=== PATIENT | female | born 1960 | race Caucasian/White ===

== ENCOUNTER 2017-12-26 16:17 | Inpatient (IN) | payer MEDICARE, OTHER ==
[2017-12-26 17:17] LABS: Basophils % (A) 0 %; Eosinophils # (A) 0.1 k/uL (0-0.7); Eosinophils % (A) 1 %; HCT 44.2 % (34.0-46.0); HGB 14.6 gm/dL (11.4-16.0); Lymphocytes # (A) 1.2 k/uL (1.0-4.8); Lymphocytes % (A) 7 %; MCH 29.8 pg (25.0-35.0); MCHC 33.1 g/dL (31.0-37.0); Mean Platelet Volume 7.8; Monocytes # (A) 0.6 k/uL (0-1.0); Monocytes % (A) 4 %; Neutrophils # (A) 13.8 k/uL (1.3-7.7); Neutrophils % (A) 87 %; Platelet Count 236 k/uL (150-450); RBC 4.91 m/uL (3.80-5.40); RDW 12.4 % (11.5-15.5); WBC 15.9 k/uL (3.8-10.6)
[2017-12-26 17:20] LABS: Appearance,Urine Clear (Clear); Bilirubin,Urine Negative (Negative); Blood,Urine Small (Negative); Color,Urine Yellow; Glucose,Urine (UA) Negative (Negative); Ketones,Urine Trace (Negative); Leukocyte Esterase,Urine Negative (Negative); Mucus,Urine Few /hpf; Nitrite,Urine Negative (Negative); PH, Urine 5.5 (5.0-8.0); Protein,Urine Trace (Negative); RBC,Urine <1 /hpf (0-5); Specific Gravity,Urine 1.021 (1.001-1.035); Squamous Epithelial Cell,Urine 1 /hpf (0-4); Urobilinogen,Urine <2.0 mg/dL (<2.0); WBC,Urine 3 /hpf (0-5)
[2017-12-26 17:34] LABS: ALT 39 U/L (9-52); AST 22 U/L (14-36); Albumin 4.6 g/dL (3.5-5.0); Alkaline Phosphatase 95 U/L (38-126); Amylase 48 U/L (30-110); Anion Gap 11 mmol/L; Blood Urea Nitrogen 14 mg/dL (7-17); Calcium 9.9 mg/dL (8.4-10.2); Carbon Dioxide 26 mmol/L (22-30); Chloride 102 mmol/L (98-107); Glucose 104 mg/dL (74-99); Lipase 35 U/L (23-300); Potassium 4.6 mmol/L (3.5-5.1); Sodium 139 mmol/L (137-145); Total Bilirubin 0.7 mg/dL (0.2-1.3); Total Protein 7.6 g/dL (6.3-8.2)
[2017-12-26] MEDS ORDERED: ONDANSETRON 4 MG/2 ML VIAL IVP STA (17:43)
[2017-12-26] MEDS ORDERED: MORPHINE SULFATE 4 MG/ML SYRINGE IV STA (17:43)
[2017-12-26] MEDS ORDERED: SODIUM CHLORIDE 0.9% 1,000 ML IV STA (17:43)
[2017-12-26] MEDS ORDERED: MORPHINE SULFATE 4 MG/ML SYRINGE IVP STA (17:59)
[2017-12-26] MEDS: SODIUM CHLORIDE 0.9% 1,000 ML IV STA ×2 (18:12→23:34)
--- NOTE | 2017-12-26 19:03 | ED ---
General Adult HPI - General Chief complaint: Abdominal Pain Stated complaint: Abd Pain Time Seen by Provider: 12/26/17 17:41 Source: patient, RN notes reviewed, old records reviewed Mode of arrival: ambulatory Limitations: no limitations - History of Present Illness Initial comments: This is a 37-year-old female to the ER for evaluation of severe bowel pain severe epigastric to right lower quadrant abdominal pain and suprapubic abdominal pain. 's medical history he is gynecological surgery including history x-ray. She otherwise takes no medications no fevers. No travel history no sick contacts. No other abdominal surgeries noted. No colonoscopy. No nausea vomiting or diarrhea currently. Patient has pain 2 days worsening and severe today - Related Data Home Medications Medication Instructions Recorded Confirmed Amitriptyline HCl [Elavil] 25 mg PO HS 12/26/17 12/26/17 Ibuprofen [Motrin] 800 mg PO BID PRN 12/26/17 12/26/17 Allergies Allergy/AdvReac Type Severity Reaction Status Date / Time latex Allergy Unknown Verified 12/26/17 17:28 Review of Systems ROS Statement: Those systems with pertinent positive or pertinent negative responses have been documented in the HPI. ROS Other: All systems not noted in ROS Statement are negative. Past Medical History Past Medical History: No Reported History History of Any Multi-Drug Resistant Organisms: None Reported Past Surgical History: Section, Hysterectomy Past Psychological History: No Psychological Hx Reported Smoking Status: Current every day smoker Past Alcohol Use History: None Reported Past Drug Use History: None Reported General Exam Limitations: no limitations General appearance: alert, in no apparent distress Head exam: Present: atraumatic, normocephalic, normal inspection Eye exam: Present: normal appearance, PERRL, EOMI. Absent: scleral icterus, conjunctival injection, periorbital swelling ENT exam: Present: normal exam, mucous membranes moist Neck exam: Present: normal inspection. Absent: tenderness, meningismus, lymphadenopathy Respiratory exam: Present: normal lung sounds bilaterally. Absent: respiratory distress, wheezes, rales, rhonchi, stridor Cardiovascular Exam: Present: regular rate, normal rhythm, normal heart sounds. Absent: systolic murmur, diastolic murmur, rubs, gallop, clicks GI/Abdominal exam: Present: soft, tenderness (Positive right lower quadrant tenderness), normal bowel sounds. Absent: distended, guarding, rebound, rigid Extremities exam: Present: normal inspection, full ROM, normal capillary refill. Absent: tenderness, pedal edema, joint swelling, calf tenderness Back exam: Present: normal inspection Neurological exam: Present: alert, oriented X3, CN II-XII intact Psychiatric exam: Present: normal affect, normal mood Skin exam: Present: warm, dry, intact, normal color. Absent: rash Course Vital Signs 12/26/17 16:22 Temperature 98.4 F Pulse Rate 98 Respiratory 18 Rate Blood Pressure 105/75 O2 Sat by Pulse 100 Oximetry - Reevaluation(s) Reevaluation #1: 12/26/17 19:03 Patient does have current pain control Reevaluation #2: 12/26/17 19:[address] Prieto will admit patient for surgical evaluation Medical Decision Making - Medical Decision Making 57 female the ER positive appendicitis. Patient be admitted for IV antibiotics , pain control, IV resuscitation and surgical consultation - Lab Data Result diagrams: 12/26/17 17:03 12/26/17 17:03 Lab Results 12/26/17 12/26/17 12/26/17 Range/Units 17:03 17:03 17:03 WBC 15.9 H (3.8-10.6) k/uL RBC 4.91 (3.80-5.40) m/uL Hgb 14.6 (11.4-16.0) gm/dL Hct 44.2 (34.0-46.0) % MCV 90.0 (80.0-100.0) fL MCH 29.8 (25.0-35.0) pg MCHC 33.1 (31.0-37.0) g/dL RDW 12.4 (11.5-15.5) % Plt Count 236 (150-450) k/uL Neutrophils % 87 % Lymphocytes % 7 % Monocytes % 4 % Eosinophils % 1 % Basophils % 0 % Neutrophils # 13.8 H (1.3-7.7) k/uL Lymphocytes # 1.2 (1.0-4.8) k/uL Monocytes # 0.6 (0-1.0) k/uL Eosinophils # 0.1 (0-0.7) k/uL Basophils # 0.0 (0-0.2) k/uL Sodium 139 (137-145) mmol/L Potassium 4.6 (3.5-5.1) mmol/L Chloride 102 (98-107) mmol/L Carbon Dioxide 26 (22-30) mmol/L Anion Gap 11 mmol/L BUN 14 (7-17) mg/dL Creatinine 0.82 (0.52-1.04) mg/dL Est GFR (CKD-EPI)AfAm >90 (>60 ml/min/1.73 sqM) Est GFR (CKD-EPI)NonAf 80 (>60 ml/min/1.73 sqM) Glucose 104 H (74-99) mg/dL Plasma Lactic Acid Juan Jose (0.7-2.0) mmol/L Calcium 9.9 (8.4-10.2) mg/dL Total Bilirubin 0.7 (0.2-1.3) mg/dL AST 22 (14-36) U/L ALT 39 (9-52) U/L Alkaline Phosphatase 95 (38-126) U/L Total Protein 7.6 (6.3-8.2) g/dL Albumin 4.6 (3.5-5.0) g/dL Amylase 48 (30-110) U/L Lipase 35 (23-300) U/L Urine Color Yellow Urine Appearance Clear (Clear) Urine pH 5.5 (5.0-8.0) Ur Specific Hoffman 1.021 (1.001-1.035) Urine Protein Trace H (Negative) Urine Glucose (UA) Negative (Negative) Urine Ketones Trace H (Negative) Urine Blood Small H (Negative) Urine Nitrite Negative (Negative) Urine Bilirubin Negative (Negative) Urine Urobilinogen <2.0 (<2.0) mg/dL Ur Leukocyte Esterase Negative (Negative) Urine RBC <1 (0-5) /hpf Urine WBC 3 (0-5) /hpf Ur Squamous Epith Cells 1 (0-4) /hpf Urine Mucus Few H (None) /hpf 12/26/17 Range/Units 18:11 WBC (3.8-10.6) k/uL RBC (3.80-5.40) m/uL Hgb (11.4-16.0) gm/dL Hct (34.0-46.0) % MCV (80.0-100.0) fL MCH (25.0-35.0) pg MCHC (31.0-37.0) g/dL RDW (11.5-15.5) % Plt Count (150-450) k/uL Neutrophils % % Lymphocytes % % Monocytes % % Eosinophils % % Basophils % % Neutrophils # (1.3-7.7) k/uL Lymphocytes # (1.0-4.8) k/uL Monocytes # (0-1.0) k/uL Eosinophils # (0-0.7) k/uL Basophils # (0-0.2) k/uL Sodium (137-145) mmol/L Potassium (3.5-5.1) mmol/L Chloride (98-107) mmol/L Carbon Dioxide (22-30) mmol/L Anion Gap mmol/L BUN (7-17) mg/dL Creatinine (0.52-1.04) mg/dL Est GFR (CKD-EPI)AfAm (>60 ml/min/1.73 sqM) Est GFR (CKD-EPI)NonAf (>60 ml/min/1.73 sqM) Glucose (74-99) mg/dL Plasma Lactic Acid Juan Jose 0.9 (0.7-2.0) mmol/L Calcium (8.4-10.2) mg/dL Total Bilirubin (0.2-1.3) mg/dL AST (14-36) U/L ALT (9-52) U/L Alkaline Phosphatase (38-126) U/L Total Protein (6.3-8.2) g/dL Albumin (3.5-5.0) g/dL Amylase (30-110) U/L Lipase (23-300) U/L Urine Color Urine Appearance (Clear) Urine pH (5.0-8.0) Ur Specific Hoffman (1.001-1.035) Urine Protein (Negative) Urine Glucose (UA) (Negative) Urine Ketones (Negative) Urine Blood (Negative) Urine Nitrite (Negative) Urine Bilirubin (Negative) Urine Urobilinogen (<2.0) mg/dL Ur Leukocyte Esterase (Negative) Urine RBC (0-5) /hpf Urine WBC (0-5) /hpf Ur Squamous Epith Cells (0-4) /hpf Urine Mucus (None) /hpf - Radiology Data Radiology results: report reviewed (CT abdomen and pelvis is positive for appendicitis), image reviewed Disposition Clinical Impression: Abdominal pain, Acute appendicitis Disposition: ADMITTED IP TO THIS HOSP Condition: Fair Is patient prescribed a controlled substance at d/c from ED?: No Referrals: Zhou Su DO [Primary Care Provider] - 1-2 days
[2017-12-26] MEDS ORDERED: AMPICILLIN-SULBACTAM 3 GM in SODIUM CHLORIDE 0.9% 100 ML IVPB STA (19:59)
--- NOTE | 2017-12-26 20:02 | CT ---
EXAMINATION TYPE: CT abdomen pelvis w con DATE OF EXAM: 12/26/2017 COMPARISON: None HISTORY: Lower abdominal pain and nausea x2 days. CT DLP: 874 mGycm Automated exposure control for dose reduction was used. TECHNIQUE: Helical acquisition of images was performed from the lung bases through the pelvis. CONTRAST: Performed without Oral Contrast and with IV Contrast, patient injected with 100ml mL of Iso richie M300. FINDINGS: LUNG BASES: No significant abnormality is appreciated. LIVER/GB: No significant abnormality is appreciated. PANCREAS: No significant abnormality is seen. SPLEEN: No significant abnormality is seen. ADRENALS: No significant abnormality is seen. KIDNEYS: No significant abnormality is seen. FREE AIR: No free air is visualized. RETROPERITONEAL ADENOPATHY: None visualized REPRODUCTIVE ORGANS: No significant abnormality is seen URINARY BLADDER: No significant abnormality is seen. PELVIC ADENOPATHY: None visualized. OSSEOUS STRUCTURES: No significant abnormality is seen. BOWEL: Throughout the abdomen there are unopacified loops of bowel, and this is particularly prominen t in the right lower quadrant. In the right lower quadrant there is a distended loop of bowel, up to 15 mm caliber. At the junction of this loop with the cecum there is high density suggesting appendico lith. There is moderate surrounding edematous reticulation of the fat planes and thickening/indistinc tness of the right lateral pelvic fascia and minimal thickening and indistinctness of the lower most right lateral conal fascia. The CT findings are consistent with appendicitis. The appendix courses fr om the right lower quadrant posteriorly to the midline to abut the soft tissues just anterior to the sacral promontory. There are no abnormal gas or fluid collections. No bowel obstruction. OTHER: Vasculature unremarkable. IMPRESSION: READINGS CONSISTENT WITH ACUTE APPENDICITIS, WITH PROMINENT DISTENTION OF THE APPENDIX. Results discu ssed with the ordering physician.
[2017-12-26 21:40] VITALS: BMI 25.7
[2017-12-26] MEDS: MORPHINE SULFATE 4 MG/ML SYRINGE IVP PRN (23:33)
[2017-12-26] MEDS: ONDANSETRON 4 MG/2 ML VIAL IVP PRN (23:33)
[2017-12-27] MEDS: AMPICILLIN-SULBACTAM 3 GM in SODIUM CHLORIDE 0.9% 100 ML IVPB SCH ×4 (00:50→18:06)
[2017-12-27] MEDS: MORPHINE SULFATE 4 MG/ML SYRINGE IVP PRN ×2 (03:47→08:23)
[2017-12-27] MEDS: ONDANSETRON 4 MG/2 ML VIAL IVP PRN (08:28)
[2017-12-27] MEDS ORDERED: IV FLUID CONTINUATION 400 ML IV ONE (08:40)
--- NOTE | 2017-12-27 08:49 | P.GSHP ---
History of Present Illness H&P Date: 12/27/17 Chief Complaint: Acute appendicitis 's is a 57-year-old female who's had right lower quadrant abdominal pain for 36 hours. She presents emergency. Her CAT scan shows evidence of appendicitis. Past Medical History Past Medical History: No Reported History, Skin Disorder Additional Past Medical History / Comment(s): psoriasis History of Any Multi-Drug Resistant Organisms: None Reported Past Surgical History: Section, Hysterectomy Past Anesthesia/Blood Transfusion Reactions: No Reported Reaction Past Psychological History: No Psychological Hx Reported Smoking Status: Current every day smoker Past Alcohol Use History: None Reported Past Drug Use History: None Reported - Past Family History Mother Family Medical History: Hyperlipidemia Father History Unknown: Yes Family Medical History: Cancer, Hypertension Additional Family Medical History / Comment(s): bladder cancer Medications and Allergies Home Medications Medication Instructions Recorded Confirmed Type Amitriptyline HCl [Elavil] 25 mg PO HS 12/26/17 12/26/17 History Ibuprofen [Motrin] 800 mg PO BID PRN 12/26/17 12/26/17 History Allergies Allergy/AdvReac Type Severity Reaction Status Date / Time latex Allergy Unknown Verified 12/26/17 17:28 Surgical - Exam Vital Signs Temp Pulse Resp BP Pulse Ox 98.4 F 98 18 105/75 100 12/26/17 16:22 12/26/17 16:22 12/26/17 16:22 12/26/17 16:22 12/26/17 16:22 - General well developed, no distress - Eyes PERRL - ENT normal pinna - Neck no masses - Respiratory normal expansion - Cardiovascular Rhythm: regular - Abdomen Right lower quadrant pain. There is tenderness on deep palpation. Abdomen: soft Results - Labs 12/26/17 17:03 12/26/17 17:03 Abnormal Lab Results - Last 24 Hours (Table) 12/26/17 12/26/17 12/26/17 Range/Units 17:03 17:03 17:03 WBC 15.9 H (3.8-10.6) k/uL Neutrophils # 13.8 H (1.3-7.7) k/uL Glucose 104 H (74-99) mg/dL Urine Protein Trace H (Negative) Urine Ketones Trace H (Negative) Urine Blood Small H (Negative) Urine Mucus Few H (None) /hpf Diabetes panel 12/26/17 Range/Units 17:03 Sodium 139 (137-145) mmol/L Potassium 4.6 (3.5-5.1) mmol/L Chloride 102 (98-107) mmol/L Carbon Dioxide 26 (22-30) mmol/L BUN 14 (7-17) mg/dL Creatinine 0.82 (0.52-1.04) mg/dL Glucose 104 H (74-99) mg/dL Calcium 9.9 (8.4-10.2) mg/dL AST 22 (14-36) U/L ALT 39 (9-52) U/L Alkaline Phosphatase 95 (38-126) U/L Total Protein 7.6 (6.3-8.2) g/dL Albumin 4.6 (3.5-5.0) g/dL Calcium panel 12/26/17 Range/Units 17:03 Calcium 9.9 (8.4-10.2) mg/dL Albumin 4.6 (3.5-5.0) g/dL Pituitary panel 12/26/17 Range/Units 17:03 Sodium 139 (137-145) mmol/L Potassium 4.6 (3.5-5.1) mmol/L Chloride 102 (98-107) mmol/L Carbon Dioxide 26 (22-30) mmol/L BUN 14 (7-17) mg/dL Creatinine 0.82 (0.52-1.04) mg/dL Glucose 104 H (74-99) mg/dL Calcium 9.9 (8.4-10.2) mg/dL Adrenal panel 12/26/17 Range/Units 17:03 Sodium 139 (137-145) mmol/L Potassium 4.6 (3.5-5.1) mmol/L Chloride 102 (98-107) mmol/L Carbon Dioxide 26 (22-30) mmol/L BUN 14 (7-17) mg/dL Creatinine 0.82 (0.52-1.04) mg/dL Glucose 104 H (74-99) mg/dL Calcium 9.9 (8.4-10.2) mg/dL Total Bilirubin 0.7 (0.2-1.3) mg/dL AST 22 (14-36) U/L ALT 39 (9-52) U/L Alkaline Phosphatase 95 (38-126) U/L Total Protein 7.6 (6.3-8.2) g/dL Albumin 4.6 (3.5-5.0) g/dL Assessment and Plan Assessment: Acute appendicitis. Patient will undergo laparoscopic appendectomy.
[2017-12-27] MEDS ORDERED: HEPARIN SODIUM,PORCINE 5,000 UNIT/ML 1 ML VIAL SQ ONE (09:03)
[2017-12-27] MEDS ORDERED: DEXAMETHASONE SOD PHOSPHATE 10 MG/ML 1 ML VIAL IV ONE (09:03)
[2017-12-27] MEDS ORDERED: fentaNYL (PF) 50 MCG/ML 2 ML AMP ONE (09:09)
[2017-12-27] MEDS ORDERED: SUCCINYLCHOLINE CHLORIDE 100 MG/5 ML SYR IV ONE (09:09)
[2017-12-27] MEDS ORDERED: LIDOCAINE 1% INJ 10MG/ML (20 ML MDV) ONE (09:09)
[2017-12-27] MEDS ORDERED: GLYCOPYRROLATE 0.2 MG/ML 2 ML VIAL ONE (09:09)
[2017-12-27] MEDS ORDERED: NEOSTIGMINE 1 MG/ML 10 ML VIAL ONE (09:09)
[2017-12-27] MEDS ORDERED: ROCURONIUM BROMIDE 10 MG/ML 10 ML VIAL IV ONE (09:09)
[2017-12-27] MEDS ORDERED: MIDAZOLAM 2 MG/2 ML VIAL ONE (09:09)
[2017-12-27] MEDS ORDERED: PROPOFOL 10 MG/ML 20 ML VIAL IV ONE (09:09)
[2017-12-27] MEDS: PANTOPRAZOLE 40 MG/10 ML VIAL IVP SCH (09:25)
[2017-12-27] MEDS ORDERED: BUPIVACAIN-EPI 0.5%-1:200,000 30 ML VIAL SQ ONE (09:29)
[2017-12-27] MEDS ORDERED: LACTATED RINGERS 1,000 ML IV ONE (09:43)
--- NOTE | 2017-12-27 09:48 | P.OP ---
Date of Procedure: 12/27/17 Preoperative Diagnosis: Acute appendicitis Postoperative Diagnosis: Acute appendicitis with microperforation Procedure(s) Performed: Laparoscopic appendectomy Anesthesia: WEN Surgeon: Nolan Prieto Estimated Blood Loss (ml): 5 Pathology: other (Appendix) Condition: stable Disposition: PACU Description of Procedure: HThe patient's placed on the operating table in the supine position. The patient received general anesthesia. The abdomen was prepped and draped in the usual sterile fashion. The skin was anesthetized 1% local Xylocaine at the trocar sites. Using an 11 blade the skin was incised at the umbilicus. The umbilicus was grasped with a Brooklyn clamp and then a Veress needle was placed into the peritoneal cavity. Position of the Veress needle was confirmed with positive drop test. After adequate insufflation a 5 mm trocar was placed into the peritoneal cavity. The abdomen was further insufflated. And then the laparoscope was placed in the peritoneal cavity. Next a 5 mm trocar was placed in the midline suprapubic position. And then a 10 mm trocar was placed in the midline epigastric position. The patient was rotated with the right side up and in Trendelenburg. The appendix was visualized. The appendix appeared to be inflamed. There appeared to be a microperforation appendix into the mesial appendix. The appendix was grasped and then using the Harmonic scissors the mesoappendix was divided. A PDS Endoloop was then placed around the base of the appendix. And then the appendix was divided using Harmonic scissors. The appendix was placed into an Endo Catch and brought out through the 10 mm trocar site. The abdomen was irrigated. There is no bleeding seen. The trochars withdrawn. The skin was closed interrupted 3-0 Monocryl suture. Dermabond dressing was applied. Patient was sent to recovery room in stable condition.
[2017-12-27] MEDS ORDERED: KETOROLAC 30 MG/ML 1 ML VIAL IVP ONE (10:30)
[2017-12-27] MEDS ORDERED: SODIUM CHLORIDE 0.9% 2,000 ML IV ONE (10:56)
--- NOTE | 2017-12-27 12:58 | P.CONS ---
History of Present Illness - Reason for Consult Preoperative complication management-hypotension - History of Present Illness Patient is a pleasant 57-year-old female came in with very little pain radiating to the right lower quadrant as well as nausea found to have appendicitis and was taken to or emergently had an appendectomy. Preoperatively patient is hypotensive which is expected patient is a 72 L bolus of IV fluid followed by 100 mL/h which is appropriate patient clinically is a symptomatically at this time clinically feels well denied any abdominal pain did not pass gas yet did not move her bowel yet does have bowel sounds. Review of Systems REVIEW OF SYSTEMS: CONSTITUTIONAL: No fever, no malaise, no fatigue. HEENT: No recent visual problems or hearing problems. Denied any sore throat. CARDIOVASCULAR: No chest pain, orthopnea, PND, no palpitations, no syncope. PULMONARY: No shortness of breath, no cough, no hemoptysis. GASTROINTESTINAL: As mentioned in HPI NEUROLOGICAL: No headaches, no weakness, no numbness. HEMATOLOGICAL: Denies any bleeding or petechiae. GENITOURINARY: Denies any burning micturition, frequency, or urgency. MUSCULOSKELETAL/RHEUMATOLOGICAL: Denies any joint pain, swelling, or any muscle pain. ENDOCRINE: Denies any polyuria or polydipsia. The rest of the 14-point review of systems is negative. Past Medical History Past Medical History: No Reported History, Skin Disorder Additional Past Medical History / Comment(s): psoriasis History of Any Multi-Drug Resistant Organisms: None Reported Past Surgical History: Section, Hysterectomy Past Anesthesia/Blood Transfusion Reactions: No Reported Reaction Past Psychological History: No Psychological Hx Reported Smoking Status: Current every day smoker Past Alcohol Use History: None Reported Past Drug Use History: None Reported - Past Family History Mother Family Medical History: Hyperlipidemia Father History Unknown: Yes Family Medical History: Cancer, Hypertension Additional Family Medical History / Comment(s): bladder cancer Medications and Allergies Home Medications Medication Instructions Recorded Confirmed Type Amitriptyline HCl [Elavil] 25 mg PO HS 12/26/17 12/26/17 History Ibuprofen [Motrin] 800 mg PO BID PRN 12/26/17 12/26/17 History Allergies Allergy/AdvReac Type Severity Reaction Status Date / Time latex Allergy Unknown Verified 12/27/17 09:15 Physical Exam Vitals: Vital Signs Temp Pulse Pulse Pulse Resp BP BP 12/27/17 11:36 63 16 87/53 12/27/17 11:21 97 16 80/60 12/27/17 11:06 70 16 84/54 12/27/17 10:54 72 12 82/49 12/27/17 10:30 98 16 114/59 12/27/17 10:15 77 16 119/63 12/27/17 09:57 98.2 F 80 16 116/56 12/27/17 08:40 100.0 F H 86 16 96/62 12/27/17 08:02 100.2 F H 87 16 95/55 12/27/17 04:00 99.5 F 83 20 99/62 12/26/17 23:00 18 12/26/17 21:23 99.9 F H 62 18 90/53 12/26/17 20:26 100.3 F H 98 18 96/54 12/26/17 16:22 98.4 F 98 18 105/75 Pulse Ox 12/27/17 11:36 93 L 12/27/17 11:21 93 L 12/27/17 11:06 93 L 12/27/17 10:54 90 L 12/27/17 10:30 96 12/27/17 10:15 100 12/27/17 09:57 100 12/27/17 08:40 92 L 12/27/17 08:02 93 L 12/27/17 04:00 98 12/26/17 23:00 12/26/17 21:23 100 12/26/17 20:26 99 12/26/17 16:22 100 Intake and Output 12/26/17 12/27/17 12/27/17 22:59 06:59 14:59 Intake Total 800 Output Total 15 Balance 785 Intake: IV 800 Output: Estimated Blood Loss 15 Other: # Voids 1 1 1 Weight 68.039 kg 68.039 kg PHYSICAL EXAMINATION: GENERAL: The patient is alert and oriented x3, not in any acute distress. Well developed, well nourished. HEENT: Pupils are round and equally reacting to light. EOMI. No scleral icterus. No conjunctival pallor. Normocephalic, atraumatic. No pharyngeal erythema. No thyromegaly. CARDIOVASCULAR: S1 and S2 present. No murmurs, rubs, or gallops. PULMONARY: Chest is clear to auscultation, no wheezing or crackles. ABDOMEN: Soft, abdominal binder in place does have bowel sounds MUSCULOSKELETAL: No joint swelling or deformity. EXTREMITIES: No cyanosis, clubbing, or pedal edema. NEUROLOGICAL: Gross neurological examination did not reveal any focal deficits. SKIN: No rashes. Results CBC & Chem 7: 12/26/17 17:03 12/26/17 17:03 Labs: Abnormal Lab Results - Last 24 Hours (Table) 12/26/17 12/26/17 12/26/17 Range/Units 17:03 17:03 17:03 WBC 15.9 H (3.8-10.6) k/uL Neutrophils # 13.8 H (1.3-7.7) k/uL Glucose 104 H (74-99) mg/dL Urine Protein Trace H (Negative) Urine Ketones Trace H (Negative) Urine Blood Small H (Negative) Urine Mucus Few H (None) /hpf Assessment and Plan Plan: -Acute appendicitis: Patient is post appendectomy is on Unasyn which is appropriate. -Hypotension: Hypotension the perioperative period is expected continue with bolus of IV fluids followed by 100 mL of normal saline per hour
[2017-12-27] MEDS ORDERED: MORPHINE ORAL SOLN 10 MG/5 ML CUP PO PRN (19:17)
[2017-12-27] MEDS ORDERED: ACETAMINOPHEN IV (For NPO) 1,000 MG in EMPTY BAG 1 BAG IVPB PRN (20:43)
[2017-12-27] MEDS ORDERED: AMITRIPTYLINE HCL 50 MG TAB PO SCH (21:00)
[2017-12-27] MEDS: AMITRIPTYLINE HCL 25 MG TAB PO SCH (22:17)
[2017-12-28] MEDS: AMPICILLIN-SULBACTAM 3 GM in SODIUM CHLORIDE 0.9% 100 ML IVPB SCH ×4 (00:10→17:45)
[2017-12-28] MEDS: HYDROcodone/APAP 5-325MG 1 EACH TAB PO PRN ×3 (09:18→17:53)
[2017-12-28] MEDS: PANTOPRAZOLE 40 MG/10 ML VIAL IVP SCH (09:19)
[2017-12-28 09:46] LABS: Basophils % (A) 0 %; Eosinophils % (A) 0 %; HCT 31.4 % (34.0-46.0); Lymphocytes % (A) 8 %; MCH 30.1 pg (25.0-35.0); MCHC 33.6 g/dL (31.0-37.0); MCV 89.5 fL (80.0-100.0); Mean Platelet Volume 8.6; Monocytes # (A) 0.3 k/uL (0-1.0); Monocytes % (A) 3 %; Neutrophils # (A) 10.1 k/uL (1.3-7.7); Neutrophils % (A) 88 %; Platelet Count 159 k/uL (150-450); RDW 12.6 % (11.5-15.5); WBC 11.5 k/uL (3.8-10.6)
[2017-12-28 09:48] LABS: HGB 10.5 gm/dL (11.4-16.0)
[2017-12-28] MEDS: SODIUM CHLORIDE 0.9% 1,000 ML IV STA (11:35)
--- NOTE | 2017-12-28 11:43 | P.PN ---
Subjective Progress Note Date: 12/28/17 57 show female seen this morning. Patient reports feeling tired did note patient had a temp last evening of 100 0.2. Current temp this morning 99. White count 11.5 down from 15.9 tolerating diet no nausea no vomiting states pain medication effective for pain control. Postop December 27 acute appendicitis with microperforation laparoscopic appendectomy Objective - Vital Signs Vital signs: Vital Signs Temp 98.3 F 12/28/17 04:00 Pulse 67 12/28/17 04:00 Resp 18 12/28/17 04:00 BP 89/56 12/28/17 04:00 Pulse Ox 95 12/28/17 04:00 Intake & Output 12/27/17 12/28/17 12/28/17 18:59 06:59 18:59 Intake Total 800 1400 Output Total 15 Balance 785 1400 Intake: IV 800 Oral 1400 Output: Estimated Blood Loss 15 Other: # Voids 2 1 - Exam Exam Pleasant 57 year old female resting in bed pleasant cooperative oriented 3 Posterior fine crackles at the bases upper airways clear sats on 3 L 91% Heart S1-S2 audible regular Abdomen surgical dressing sites dry few hypoactive bowel tones nondistended nontender passing gas no stool no nausea no vomiting tolerating diet Extremities no edema noted - Labs CBC & Chem 7: 12/28/17 09:01 12/26/17 17:03 Labs: Abnormal Lab Results - Last 24 Hours (Table) 12/28/17 Range/Units 09:01 WBC 11.5 H (3.8-10.6) k/uL RBC 3.50 L (3.80-5.40) m/uL Hgb 10.5 L D (11.4-16.0) gm/dL Hct 31.4 L (34.0-46.0) % Neutrophils # 10.1 H (1.3-7.7) k/uL Assessment and Plan Assessment: Impression Present on admission right lower quadrant abdominal pain onset several days prior CAT scan abdomen pelvis in the emergency room showed evidence of an acute appendicitis Present on admission leukocytosis likely reactive Status post December 27 laparoscopic appendectomy for acute appendicitis with microperforation Plan Continue IV Unasyn as ordered Upon discharge Levaquin for 7 days Pain control Encourage use of incentive spirometer Anticipate discharge in the next 24 hours Increase activity DVT and GI prophylaxis Diet as tolerated The above impression and plan of care have been discussed and directed by signing physician. Aileen Aleman nurse practitioner acting as scribe for signing physician.
--- NOTE | 2017-12-28 12:40 | P.PN ---
Subjective Patient is clinically doing well no overnight events. Denied any abdominal pain. Objective - Vital Signs Vital signs: Vital Signs Temp 98.2 F 12/28/17 12:04 Pulse 61 12/28/17 12:04 Resp 16 12/28/17 12:04 BP 102/59 12/28/17 12:04 Pulse Ox 96 12/28/17 12:04 Intake & Output 12/27/17 12/28/17 12/28/17 18:59 06:59 18:59 Intake Total 800 1400 Output Total 15 Balance 785 1400 Intake: IV 800 Oral 1400 Output: Estimated Blood Loss 15 Other: # Voids 2 1 - Exam PHYSICAL EXAMINATION: GENERAL: The patient is alert and oriented x3, not in any acute distress. Well developed, well nourished. HEENT: Pupils are round and equally reacting to light. EOMI. No scleral icterus. No conjunctival pallor. Normocephalic, atraumatic. No pharyngeal erythema. No thyromegaly. CARDIOVASCULAR: S1 and S2 present. No murmurs, rubs, or gallops. PULMONARY: Chest is clear to auscultation, no wheezing or crackles. ABDOMEN: Soft, abdominal binder in place does have bowel sounds MUSCULOSKELETAL: No joint swelling or deformity. EXTREMITIES: No cyanosis, clubbing, or pedal edema. NEUROLOGICAL: Gross neurological examination did not reveal any focal deficits. SKIN: No rashes. - Labs CBC & Chem 7: 12/28/17 09:01 12/26/17 17:03 Labs: Abnormal Lab Results - Last 24 Hours (Table) 12/28/17 Range/Units 09:01 WBC 11.5 H (3.8-10.6) k/uL RBC 3.50 L (3.80-5.40) m/uL Hgb 10.5 L D (11.4-16.0) gm/dL Hct 31.4 L (34.0-46.0) % Neutrophils # 10.1 H (1.3-7.7) k/uL Assessment and Plan Plan: -Acute appendicitis: Patient is post appendectomy is on Unasyn which is appropriate. -Hypotension: Hypotension the perioperative period improved with IV fluids no further intervention at this time.
[2017-12-28] MEDS: KETOROLAC 30 MG/ML 1 ML VIAL IVP PRN (20:54)
[2017-12-28] MEDS: AMITRIPTYLINE HCL 25 MG TAB PO SCH (21:58)
[2017-12-29] MEDS: AMPICILLIN-SULBACTAM 3 GM in SODIUM CHLORIDE 0.9% 100 ML IVPB SCH ×3 (00:19→13:17)
[2017-12-29 07:17] LABS: Basophils % (A) 0 %; Eosinophils # (A) 0.2 k/uL (0-0.7); Eosinophils % (A) 2 %; HCT 32.9 % (34.0-46.0); HGB 10.7 gm/dL (11.4-16.0); Lymphocytes # (A) 1.1 k/uL (1.0-4.8); Lymphocytes % (A) 13 %; MCH 29.6 pg (25.0-35.0); MCHC 32.7 g/dL (31.0-37.0); MCV 90.8 fL (80.0-100.0); Mean Platelet Volume 8.6; Monocytes # (A) 0.4 k/uL (0-1.0); Monocytes % (A) 5 %; Neutrophils # (A) 6.9 k/uL (1.3-7.7); Neutrophils % (A) 79 %; Platelet Count 178 k/uL (150-450); RBC 3.62 m/uL (3.80-5.40); RDW 12.5 % (11.5-15.5); WBC 8.7 k/uL (3.8-10.6)
[2017-12-29 07:52] LABS: ALT 188 U/L (9-52); Albumin 2.6 g/dL (3.5-5.0); Alkaline Phosphatase 136 U/L (38-126); Blood Urea Nitrogen 15 mg/dL (7-17); Carbon Dioxide 27 mmol/L (22-30); Glucose 83 mg/dL (74-99); Potassium 3.9 mmol/L (3.5-5.1); Sodium 140 mmol/L (137-145); Total Bilirubin 0.7 mg/dL (0.2-1.3); Total Protein 5.1 g/dL (6.3-8.2)
[2017-12-29 07:53] LABS: AST 163 U/L (14-36); Anion Gap 5 mmol/L; Calcium 8.2 mg/dL (8.4-10.2); Chloride 108 mmol/L (98-107)
[2017-12-29] MEDS: KETOROLAC 30 MG/ML 1 ML VIAL IVP PRN ×2 (07:53→14:19)
[2017-12-29] MEDS: PANTOPRAZOLE 40 MG/10 ML VIAL IVP SCH (07:56)
--- NOTE | 2017-12-29 09:39 | P.DS ---
Providers Date of admission: 12/27/17 16:41 Expected date of discharge: 12/29/17 Attending physician: Nolan Prieto Consults: 12/27/17 09:48 Consult Physician Routine Consulting Provider: Yunior Egan Consult Reason/Comments: Medical management Do you want consulting provider notified?: Yes Primary care physician: [facility] Course: 57 year old female presented to the emergency room to be evaluated for right lower quadrant abdominal pain that has started several days prior. Patient states symptoms became more symptomatic. In the emergency room a computed tomography scan showed evidence of an acute appendicitis patient was admitted to the services of the attending. On December 27 underwent upper scopic appendectomy for acute appendicitis with microperforation. patient was started on IV Unasyn monitored closely. On the day of discharge was felt to be appropriate to be discharged home with the plan the patient with follow-up in the outpatient setting recommended to the patient the patient be started on Levaquin or Cipro. Patient was adamant about not starting these antibiotics very concerned "had a sister who had a drug reaction from these drugs she is hesitant actually refusing to be started on these antibiotics" did reinforce to the patient these 2 antibiotics would offer appropriate coverage for possible abscess. Patient stated she did not want to start either one of them. She did agree to starting Flagyl 500 3 times a day for 10 days. It was reinforced to the patient to notify the attending a return to the nearest emergency room patient developed fever increased pain increased abdominal distention. Impression Present on admission right lower quadrant abdominal pain onset several days prior CAT scan abdomen pelvis in the emergency room showed evidence of an acute appendicitis Present on admission leukocytosis likely reactive Status post December 27 laparoscopic appendectomy for acute appendicitis with microperforation The above impression and plan of care have been discussed and directed by signing physician. Aileen Aleman nurse practitioner acting as scribe for signing physician. Patient Condition at Discharge: Fair Plan - Discharge Summary New Discharge Prescriptions: New metroNIDAZOLE [Flagyl] 500 mg PO QID #40 tab HYDROcodone/APAP 5-325MG [[place] 5-325] 1 tab PO Q4HR PRN 3 Days #18 tab PRN Reason: Moderate Pain No Action Amitriptyline HCl [Elavil] 25 mg PO HS Ibuprofen [Motrin] 800 mg PO BID PRN PRN Reason: Pain Discharge Medication List Amitriptyline HCl [Elavil] 25 mg PO HS 12/26/17 [History] Ibuprofen [Motrin] 800 mg PO BID PRN 12/26/17 [History] HYDROcodone/APAP 5-325MG [[place] 5-325] 1 tab PO Q4HR PRN 3 Days #18 tab [Rx] metroNIDAZOLE [Flagyl] 500 mg PO QID #40 tab 12/29/17 [Rx] Follow up Appointment(s)/Referral(s): Zhou Su DO [Primary Care Provider] - 1-2 days Nolan Prieto MD [STAFF PHYSICIAN] - 1 Week Activity/Diet/Wound Care/Special Instructions: No tub bath for six weeks. Shower daily. No lifting over 10 pounds for the next 6 weeks. Return to the nearest emergency room if patient develops a temperature fever chills or increased abdominal pain May use ice packs to surgical site. No driving while taking narcotic for pain. Discharge Disposition: HOME SELF-CARE
[2017-12-29] MEDS: HYDROcodone/APAP 5-325MG 1 EACH TAB PO PRN (11:30)
[2017-12-29 12:17] VITALS: BP 113/66; PULSE 66; RESP 18; TEMP 98.8
--- NOTE | 2017-12-29 15:21 | P.PN ---
Subjective Patient is clinically doing well no overnight events. Denied any abdominal pain. Patient is being discharged today and medical management as per primary service patient has mildly elevated liver enzymes secondary to transient biliary sludge from appendicitis. Objective - Vital Signs Vital signs: Vital Signs Temp 98.8 F 12/29/17 12:03 Pulse 66 12/29/17 12:03 Resp 18 12/29/17 12:03 BP 113/66 12/29/17 12:03 Pulse Ox 95 12/29/17 12:03 Intake & Output 12/28/17 12/29/17 12/29/17 18:59 06:59 18:59 Intake Total 480 400 240 Balance 480 400 240 Intake: Oral 480 400 240 Other: Voiding Method Toilet Toilet # Voids 1 1 - Exam PHYSICAL EXAMINATION: GENERAL: The patient is alert and oriented x3, not in any acute distress. Well developed, well nourished. HEENT: Pupils are round and equally reacting to light. EOMI. No scleral icterus. No conjunctival pallor. Normocephalic, atraumatic. No pharyngeal erythema. No thyromegaly. CARDIOVASCULAR: S1 and S2 present. No murmurs, rubs, or gallops. PULMONARY: Chest is clear to auscultation, no wheezing or crackles. ABDOMEN: Soft, abdominal binder in place does have bowel sounds MUSCULOSKELETAL: No joint swelling or deformity. EXTREMITIES: No cyanosis, clubbing, or pedal edema. NEUROLOGICAL: Gross neurological examination did not reveal any focal deficits. SKIN: No rashes. - Labs CBC & Chem 7: 12/29/17 07:05 12/29/17 07:05 Labs: Abnormal Lab Results - Last 24 Hours (Table) 12/29/17 12/29/17 Range/Units 07:05 07:05 RBC 3.62 L (3.80-5.40) m/uL Hgb 10.7 L (11.4-16.0) gm/dL Hct 32.9 L (34.0-46.0) % Chloride 108 H (98-107) mmol/L Calcium 8.2 L (8.4-10.2) mg/dL AST 163 H (14-36) U/L ALT 188 H (9-52) U/L Alkaline Phosphatase 136 H (38-126) U/L Total Protein 5.1 L (6.3-8.2) g/dL Albumin 2.6 L (3.5-5.0) g/dL Assessment and Plan Plan: -Acute appendicitis: Patient is post appendectomy was on Unasyn, patient is being discharged today and discharge antibiotics as per primary service -Hypotension: Hypotension the perioperative period improved with IV fluids no further intervention at this time. -Elevated liver enzymes: Secondary to transient biliary sludge from appendicitis expected to improve
== END 2017-12-29 15:00 | disposition home or self-care (01) | DRG 343 ==
LOC: EC 16:17 → 6PED 20:00 → OBSVTOIN 12-27 16:41
PROVIDERS: ADMIT Surgery; ATTEND Surgery
PROC: 0DTJ4ZZ Resection of Appendix, Percutaneous Endoscopic Approach (ICD-10-PCS; principal; 2017-12-27 12:10)
DX: K35.80 Unspecified acute appendicitis (principal); F17.200 Nicotine dependence, unspecified, uncomplicated; I95.9 Hypotension, unspecified; R74.8 Abnormal levels of other serum enzymes; Z90.710 Acquired absence of both cervix and uterus; Z79.899 Other long term (current) drug therapy; Z91.040 Latex allergy status; Z80.52 Family history of malignant neoplasm of bladder; Z82.49 Family history of ischemic heart disease and other diseases of the circulatory system
CPT/HCPCS: 36415; 74177; 80053; 81001; 82150; 83605; 83690; 85025; 88304; 96361; 96365; 96375; 99285

== ENCOUNTER → 2018-01-12 | Outpatient (CLI) | payer MEDICARE, OTHER ==
--- NOTE | 2018-01-12 18:30 | NM ---
EXAMINATION TYPE: NM bone/joint limited DATE OF EXAM: 01/12/2018 COMPARISON: NONE HISTORY: Osteoarthritis of left hip TECHNIQUE: After the intravenous administration of 25.2 mCi Tc 99m MDP. Images acquired 3.5 hours p ost injection. Multiple views of the pelvis are submitted. Diffuse uptake is present through the bilateral hips. Some uptake is likely present within the sacroi liac joints. Findings are most likely degenerative in nature. Suspicious focal uptake is not identified. Note is made of some contamination below the pelvis. IMPRESSION: 1. Diffuse uptake. Sacroiliac joints and bilateral hip joint spaces most likely degenerative in natur e. 2. Suspicious asymmetric uptake within the hips or other focal abnormality is not identified.
== END | disposition home or self-care (01) ==
LOC: RADNMMAIN 11:16
PROVIDERS: ATTEND Family Medicine
DX: R94.8 Abnormal results of function studies of other organs and systems (principal); M16.12 Unilateral primary osteoarthritis, left hip
CPT/HCPCS: 78300; A9503